=== PATIENT | male | born 1980 | race Caucasian/White ===

== ENCOUNTER 2018-05-31 06:45 | Emergency (ER) | payer OTHER ==
[~2018-05-31] VITALS: Ht 170.1 cm; Wt 129.3 kg
[~2018-05-31 06:45] MED LIST: ATARAX,VISTARIL50 MG PO; AUGMENTIN 875 M1 TAB PO; CITALOPRAM40 MG PO; FOSINOPRIL SODI40 MG PO; HYDR12.5C PO; LISINOPRIL20 MG PO; MEDROL DOSEPAK4 MG PO
[2018-05-31] MEDS ORDERED: FOSINOPRIL40 MG PO (06:48)
[2018-05-31] MEDS ORDERED: PREDNISONE50 MG PO (07:25)
[2018-05-31] MEDS ORDERED: CYCLOBENZAPRINE10 MG PO (07:25)
== END 2018-05-31 07:41 | disposition home or self-care (01) ==
LOC: ED 06:45
DX: M54.41 Lumbago with sciatica, right side (principal); M25.551 Pain in right hip; Z91.030 Bee allergy status; Z79.899 Other long term (current) drug therapy

== ENCOUNTER → 2018-06-20 | Outpatient (CLI) | payer OTHER ==
[~2018-06-20] MED LIST changes: +CYCLOBENZAPRINE10 MG PO; +FOSINOPRIL40 MG PO; +PREDNISONE50 MG PO
== END | disposition home or self-care (01) ==
LOC: RAD 10:46
DX: M47.817 Spondylosis without myelopathy or radiculopathy, lumbosacral region (principal)

== ENCOUNTER → 2018-11-25 | Outpatient (CLI) | payer OTHER | END | disposition home or self-care (01) | LOC: RAD 12:48 | DX: R50.9 Fever, unspecified (principal); R05 Cough ==

== ENCOUNTER 2020-03-06 13:34 | Emergency (ER) | payer OTHER ==
[~2020-03-06] VITALS: Ht 172.7 cm; Wt 129.3 kg
[2020-03-06 14:26] LABS: BASO % 0.4 % (0.0-1.0); EOS # 0.1 10*3/uL (0.0-0.4); EOS % 0.6 % (1.0-4.0); HEMATOCRIT 41.4 % (42.0-52.0); LYMPH # 1.4 10*3/uL (1.3-4.4); LYMPH % 12.4 % (27.0-41.0); MEAN CELL VOLUME 95.4 fl (80.0-94.0); MEAN CORPUSCULAR HGB 31.8 pg (27.0-31.0); MEAN CORPUSCULAR HGB CONC 33.3 g/dl (33.0-37.0); MEAN PLATELET VOLUME 8.8 fl (9.6-12.3); MONO # 0.8 10*3/uL (0.1-1.0); MONO % 7.3 % (3.0-9.0); NEUT # 8.8 10*3/uL (2.3-7.9); NEUT % 78.9 % (47.0-73.0); PLATELET COUNT AUTOMATED 249 10*3/uL (130-400); RED BLOOD COUNT 4.34 10*6/uL (4.50-5.90); RED CELL DISTRI WIDTH 11.9 % (0-14.5); WHITE BLOOD COUNT 11.2 10*3/uL (4.8-10.8)
[2020-03-06 14:27] LABS: BILIRUBIN Negative (Negative); BLOOD Negative (Negative); CLARITY Clear (Clear); COLOR Yellow (Yellow); GLUCOSE Negative (Negative); KETONE Negative (Negative); LEUKO ESTERASE Negative (Negative); NITRITE Negative (Negative); SPECIFIC GRAVITY <= 1.005 (1.001-1.030); UROBILINOGEN 0.2 E.U./dl (0.0-1.0)
[2020-03-06 14:38] LABS: RBC 0-2 rbc/hpf (0-2)
[2020-03-06 14:42] LABS: ALBUMIN 3.5 gm/dl (3.1-4.5); ALKALINE PHOSPHATASE 86 U/L (45-117); BUN 6 mg/dl (7-24); CHLORIDE 103 mmol/L (98-107); CREATININE 0.63 mg/dL (0.70-1.30); LIPASE 121 U/L (73-393); POTASSIUM 3.7 mmol/L (3.5-5.1); SGOT/AST 60 IU/L (3-35); SGPT/ALT 75 U/L (12-78); SODIUM 139 mmol/L (136-145); TOTAL PROTEIN 7.5 gm/dL (6.4-8.2)
[2020-03-06] MEDS ORDERED: CIPRO500 MG PO ×2 (17:13→17:20)
[2020-03-06] MEDS ORDERED: FLAGYL500 MG PO ×2 (17:13→17:20)
[2020-03-06] MEDS ORDERED: NORCO 5-325 TA1 EACH PO (17:20)
== END 2020-03-06 17:23 | disposition home or self-care (01) ==
LOC: ED 13:34
PROVIDERS: Nurse Practitioner Family
DX: K57.32 Diverticulitis of large intestine without perforation or abscess without bleeding (principal); Z91.030 Bee allergy status; Z79.899 Other long term (current) drug therapy

== ENCOUNTER 2021-06-01 23:37 | Emergency (ER) | payer OTHER ==
[~2021-06-01 23:37] MED LIST changes: +CIPRO500 MG PO; +FLAGYL500 MG PO; +NORCO 5-325 TA1 EACH PO
[2021-06-02 00:25] LABS: BASO % 0.3 % (0.0-1.0); EOS # 0.1 10*3/uL (0.0-0.4); EOS % 0.5 % (1.0-4.0); HEMATOCRIT 50.1 % (42.0-52.0); LYMPH % 30.3 % (27.0-41.0); MEAN CELL VOLUME 93.8 fl (80.0-94.0); MEAN CORPUSCULAR HGB 31.3 pg (27.0-31.0); MEAN CORPUSCULAR HGB CONC 33.3 g/dl (33.0-37.0); MEAN PLATELET VOLUME 8.8 fl (9.6-12.3); MONO # 0.7 10*3/uL (0.1-1.0); MONO % 6.8 % (3.0-9.0); NEUT # 6.2 10*3/uL (2.3-7.9); NEUT % 61.4 % (47.0-73.0); PLATELET COUNT AUTOMATED 288 10*3/uL (130-400); RED BLOOD COUNT 5.34 10*6/uL (4.50-5.90); RED CELL DISTRI WIDTH 12.7 % (0-14.5)
[2021-06-02 00:48] LABS: ALBUMIN 3.1 gm/dl (3.1-4.5); ALKALINE PHOSPHATASE 73 U/L (45-117); BUN 12 mg/dl (7-24); CHLORIDE 97 mmol/L (98-107); CREATININE 0.96 mg/dL (0.70-1.30); POTASSIUM 3.3 mmol/L (3.5-5.1); SGOT/AST 31 IU/L (3-35); SGPT/ALT 51 U/L (12-78); SODIUM 134 mmol/L (136-145); TOTAL PROTEIN 6.3 gm/dL (6.4-8.2)
[2021-06-02] MEDS ORDERED: PREDNISONE50 MG PO (09:59)
== END 2021-06-02 10:12 | disposition home or self-care (01) ==
LOC: ED 23:37
PROVIDERS: Emergency Medicine
DX: L50.9 Urticaria, unspecified (principal); T39.395A Adverse effect of other nonsteroidal anti-inflammatory drugs [NSAID], initial encounter; Z91.030 Bee allergy status; Z79.899 Other long term (current) drug therapy; Y92.89 Other specified places as the place of occurrence of the external cause

== ENCOUNTER → 2021-09-23 | Outpatient (CLI) | payer OTHER ==
[2021-09-23 12:12] LABS: BASO % 0.3 % (0.0-1.0); EOS # 0.1 10*3/uL (0.0-0.4); EOS % 0.7 % (1.0-4.0); HEMATOCRIT 45.5 % (42.0-52.0); LYMPH # 1.2 10*3/uL (1.3-4.4); LYMPH % 14.1 % (27.0-41.0); MEAN CORPUSCULAR HGB 31.9 pg (27.0-31.0); MEAN CORPUSCULAR HGB CONC 34.3 g/dl (33.0-37.0); MEAN PLATELET VOLUME 8.5 fl (9.6-12.3); MONO # 0.8 10*3/uL (0.1-1.0); MONO % 9.1 % (3.0-9.0); NEUT # 6.6 10*3/uL (2.3-7.9); NEUT % 75.3 % (47.0-73.0); PLATELET COUNT AUTOMATED 259 10*3/uL (130-400); RED BLOOD COUNT 4.89 10*6/uL (4.50-5.90); RED CELL DISTRI WIDTH 11.9 % (0-14.5); WHITE BLOOD COUNT 8.8 10*3/uL (4.8-10.8)
[2021-09-23 12:30] LABS: ALKALINE PHOSPHATASE 97 U/L (45-117); BUN 10 mg/dl (7-24); CHLORIDE 105 mmol/L (98-107); CREATININE 0.75 mg/dL (0.70-1.30); POTASSIUM 4.4 mmol/L (3.5-5.1); SGOT/AST 34 IU/L (3-35); SGPT/ALT 58 U/L (12-78); SODIUM 139 mmol/L (136-145); TOTAL PROTEIN 7.9 gm/dL (6.4-8.2)
[2021-09-24 02:06] LABS: TOTAL PROTEIN, SERUM 7.3 g/dL (6.0-8.5)
[2021-09-24 05:06] LABS: IMMUNOGLOBULIN G, QNT 774 mg/dL (603-1613); IMMUNOGLOBULIN M, QNT 100 mg/dL (20-172)
[2021-09-26 14:08] LABS: A/G RATIO 1.1 (0.7-1.7); ALBUMIN 3.9 g/dL (2.9-4.4); ALPHA-1-GLOBULIN 0.3 g/dL (0.0-0.4); ALPHA-2-GLOBULIN 0.9 g/dL (0.4-1.0); BETA GLOBULIN 1.3 g/dL (0.7-1.3); GAMMA GLOBULIN 0.8 g/dL (0.4-1.8); GLOBULIN, TOTAL 3.4 g/dL (2.2-3.9); M-SPIKE Not Observed g/dL (Not Observed)
== END | disposition home or self-care (01) ==
LOC: LAB 11:47
PROVIDERS: ATTEND Chiropractor Orthopedic
DX: M54.6 Pain in thoracic spine (principal)

== ENCOUNTER 2021-10-13 04:28 | Emergency (ER) | payer OTHER ==
[~2021-10-13] VITALS: Ht 170.1 cm; Wt 132.0 kg
== END 2021-10-13 05:47 | disposition home or self-care (01) ==
LOC: ED 04:28
DX: H57.12 Ocular pain, left eye (principal); Z79.899 Other long term (current) drug therapy; Z91.030 Bee allergy status; Z88.1 Allergy status to other antibiotic agents

== ENCOUNTER 2021-12-12 10:36 | Emergency (ER) | payer OTHER ==
[~2021-12-12] VITALS: Ht 172.7 cm; Wt 136.1 kg
[2021-12-12 11:30] LABS: BASO # 0.1 10*3/uL (0.0-0.1); BASO % 0.5 % (0.0-1.0); EOS # 0.1 10*3/uL (0.0-0.4); EOS % 0.7 % (1.0-4.0); HEMATOCRIT 42.8 % (42.0-52.0); LYMPH # 1.5 10*3/uL (1.3-4.4); LYMPH % 13.6 % (27.0-41.0); MEAN CELL VOLUME 95.5 fl (80.0-94.0); MEAN CORPUSCULAR HGB 32.1 pg (27.0-31.0); MEAN CORPUSCULAR HGB CONC 33.6 g/dl (33.0-37.0); MEAN PLATELET VOLUME 9.2 fl (9.6-12.3); MONO # 0.8 10*3/uL (0.1-1.0); MONO % 7.5 % (3.0-9.0); NEUT # 8.3 10*3/uL (2.3-7.9); NEUT % 77.2 % (47.0-73.0); PLATELET COUNT AUTOMATED 231 10*3/uL (130-400); RED BLOOD COUNT 4.48 10*6/uL (4.50-5.90); RED CELL DISTRI WIDTH 13.2 % (0-14.5); WHITE BLOOD COUNT 10.7 10*3/uL (4.8-10.8)
[2021-12-12 11:49] LABS: ALKALINE PHOSPHATASE 83 U/L (45-117); BUN 11 mg/dl (7-24); CHLORIDE 105 mmol/L (98-107); CREATININE 0.61 mg/dL (0.70-1.30); SGOT/AST 40 IU/L (3-35); SGPT/ALT 54 U/L (12-78); SODIUM 141 mmol/L (136-145); TOTAL PROTEIN 7.2 gm/dL (6.4-8.2)
== END 2021-12-12 14:19 | disposition home or self-care (01) ==
LOC: ED 10:36
PROVIDERS: Physician Assistant
DX: R60.0 Localized edema (principal); Z79.899 Other long term (current) drug therapy; Z91.030 Bee allergy status; Z88.1 Allergy status to other antibiotic agents

== ENCOUNTER 2021-12-20 11:20 | Observation (INO) | payer OTHER ==
[~2021-12-20] VITALS: Ht 172.7 cm; Wt 139.8 kg
[2021-12-20 11:33] VITALS: BP 103/59
[2021-12-20 12:13] LABS: BASO % 0.4 % (0.0-1.0); EOS # 0.1 10*3/uL (0.0-0.4); EOS % 1.5 % (1.0-4.0); HEMATOCRIT 41.6 % (42.0-52.0); LYMPH # 1.1 10*3/uL (1.3-4.4); LYMPH % 13.4 % (27.0-41.0); MEAN CELL VOLUME 93.9 fl (80.0-94.0); MEAN CORPUSCULAR HGB 31.4 pg (27.0-31.0); MEAN CORPUSCULAR HGB CONC 33.4 g/dl (33.0-37.0); MEAN PLATELET VOLUME 8.6 fl (9.6-12.3); MONO # 0.7 10*3/uL (0.1-1.0); MONO % 8.7 % (3.0-9.0); NEUT # 6.4 10*3/uL (2.3-7.9); NEUT % 75.6 % (47.0-73.0); PLATELET COUNT AUTOMATED 254 10*3/uL (130-400); RED BLOOD COUNT 4.43 10*6/uL (4.50-5.90); RED CELL DISTRI WIDTH 12.7 % (0-14.5); WHITE BLOOD COUNT 8.5 10*3/uL (4.8-10.8)
[2021-12-20 12:23] LABS: ACT PARTIAL THROMBO TIME 27.1 SECONDS (20.0-32.1)
[2021-12-20 12:29] LABS: ALKALINE PHOSPHATASE 87 U/L (45-117); BUN 11 mg/dl (7-24); CHLORIDE 108 mmol/L (98-107); CREATININE 0.56 mg/dL (0.70-1.30); LIPASE 112 U/L (73-393); POTASSIUM 3.7 mmol/L (3.5-5.1); SGOT/AST 21 IU/L (3-35); SGPT/ALT 38 U/L (12-78); SODIUM 137 mmol/L (136-145); TOTAL PROTEIN 6.9 gm/dL (6.4-8.2)
[2021-12-20 15:00] VITALS: BP 144/81
[2021-12-20 17:48] VITALS: BP 146/92
[2021-12-20] MEDS ORDERED: FOSINOPRIL40 MG PO (18:24)
[2021-12-20] MEDS ORDERED: LOPRESSOR25 MG PO (18:24)
[2021-12-20] MEDS ORDERED: LASIX20 MG PO (18:25)
[2021-12-20] MEDS ORDERED: NORVASC10 MG PO (18:25)
[2021-12-20 20:00] VITALS: BP 141/79
[2021-12-21] VITALS: BP 116/80
[2021-12-21 06:04] LABS: BUN 14 mg/dl (7-24); CHLORIDE 104 mmol/L (98-107); CREATININE 0.65 mg/dL (0.70-1.30); POTASSIUM 3.4 mmol/L (3.5-5.1); SGOT/AST 19 IU/L (3-35); SGPT/ALT 35 U/L (12-78); SODIUM 138 mmol/L (136-145); TOTAL PROTEIN 6.6 gm/dL (6.4-8.2)
[2021-12-21 06:07] LABS: ALKALINE PHOSPHATASE 82 U/L (45-117); CHOLESTEROL 149 mg/dL (<200); LDL CHOLESTEROL 83 mg/dL (9-159); TRIGLYCERIDES 98 mg/dl (<150)
[2021-12-21 06:19] LABS: BASO % 0.5 % (0.0-1.0); EOS # 0.2 10*3/uL (0.0-0.4); EOS % 2.1 % (1.0-4.0); HEMATOCRIT 40.3 % (42.0-52.0); LYMPH # 1.4 10*3/uL (1.3-4.4); LYMPH % 16.7 % (27.0-41.0); MEAN CELL VOLUME 96.6 fl (80.0-94.0); MEAN CORPUSCULAR HGB 31.9 pg (27.0-31.0); MEAN PLATELET VOLUME 9.3 fl (9.6-12.3); MONO # 0.9 10*3/uL (0.1-1.0); MONO % 10.7 % (3.0-9.0); NEUT # 5.9 10*3/uL (2.3-7.9); NEUT % 69.5 % (47.0-73.0); PLATELET COUNT AUTOMATED 265 10*3/uL (130-400); RED BLOOD COUNT 4.17 10*6/uL (4.50-5.90); RED CELL DISTRI WIDTH 13.2 % (0-14.5); WHITE BLOOD COUNT 8.5 10*3/uL (4.8-10.8)
[2021-12-21 08:00] VITALS: BP 120/61
[2021-12-21 12:00] VITALS: BP 130/69
[2021-12-21 16:00] VITALS: BP 138/86
== END 2021-12-21 17:22 | disposition home or self-care (01) ==
LOC: ED 11:20 → EDHOLD 14:58 → 4E 14:58
PROVIDERS: Emergency Medicine; Student in an Organized Health Care Education/Training Program; ADMIT Internal Medicine; ATTEND Internal Medicine
DX: R07.89 Other chest pain (principal); I11.0 Hypertensive heart disease with heart failure; I50.9 Heart failure, unspecified; D64.9 Anemia, unspecified; R00.0 Tachycardia, unspecified; R73.9 Hyperglycemia, unspecified; R79.82 Elevated C-reactive protein (CRP); I51.7 Cardiomegaly; E83.51 Hypocalcemia; E87.8 Other disorders of electrolyte and fluid balance, not elsewhere classified; R42 Dizziness and giddiness; Z79.899 Other long term (current) drug therapy

== ENCOUNTER 2022-04-26 18:21 | Emergency (ER) | payer OTHER ==
[~2022-04-26] VITALS: Ht 172.7 cm; Wt 136.1 kg
[~2022-04-26 18:21] MED LIST changes: +LASIX20 MG PO; +LOPRESSOR25 MG PO; +NORVASC10 MG PO
[2022-04-26 19:22] LABS: BASO % 0.3 % (0.0-1.0); EOS # 0.1 10*3/uL (0.0-0.4); EOS % 0.9 % (1.0-4.0); HEMATOCRIT 44.4 % (42.0-52.0); LYMPH # 1.7 10*3/uL (1.3-4.4); LYMPH % 16.7 % (27.0-41.0); MEAN CELL VOLUME 93.7 fl (80.0-94.0); MEAN CORPUSCULAR HGB 31.4 pg (27.0-31.0); MEAN CORPUSCULAR HGB CONC 33.6 g/dl (33.0-37.0); MEAN PLATELET VOLUME 8.8 fl (9.6-12.3); MONO # 0.9 10*3/uL (0.1-1.0); MONO % 8.9 % (3.0-9.0); NEUT # 7.4 10*3/uL (2.3-7.9); NEUT % 72.9 % (47.0-73.0); PLATELET COUNT AUTOMATED 219 10*3/uL (130-400); RED BLOOD COUNT 4.74 10*6/uL (4.50-5.90); RED CELL DISTRI WIDTH 12.6 % (0-14.5); WHITE BLOOD COUNT 10.2 10*3/uL (4.8-10.8)
[2022-04-26 19:33] LABS: ACT PARTIAL THROMBO TIME 26.6 SECONDS (20.0-32.1)
[2022-04-26 19:40] LABS: ALKALINE PHOSPHATASE 87 U/L (46-116); BUN 11 mg/dl (9-23); CHLORIDE 102 mmol/L (98-107); POTASSIUM 3.8 mmol/L (3.4-5.1); SGPT/ALT 28 U/L (10-49); SODIUM 139 mmol/L (136-145); TOTAL PROTEIN 7.1 gm/dL (6.0-8.0)
== END 2022-04-26 22:39 | disposition home or self-care (01) ==
LOC: ED 18:21
PROVIDERS: Family Medicine
DX: R07.89 Other chest pain (principal); R00.2 Palpitations; Z79.899 Other long term (current) drug therapy; Z91.030 Bee allergy status; Z88.8 Allergy status to other drugs, medicaments and biological substances

== ENCOUNTER → 2022-10-24 | Outpatient (CLI) | payer OTHER | END | disposition home or self-care (01) | LOC: RAD 12:18 | PROVIDERS: ATTEND Internal Medicine | DX: M25.551 Pain in right hip (principal) ==

== ENCOUNTER → 2023-07-03 | Outpatient (CLI) | payer OTHER | END | disposition home or self-care (01) | LOC: RAD 11:21 | PROVIDERS: ATTEND Internal Medicine | DX: M54.6 Pain in thoracic spine (principal) ==

== ENCOUNTER 2023-09-02 01:09 | Inpatient (IN) | payer OTHER ==
[~2023-09-02] VITALS: Ht 172.7 cm; Wt 150.4 kg
[2023-09-02 01:15] VITALS: BP 143/86
[2023-09-02 01:34] LABS: BASO # 0.1 10*3/uL (0.0-0.1); BASO % 0.5 % (0.0-1.0); EOS # 0.2 10*3/uL (0.0-0.4); EOS % 1.9 % (1.0-4.0); HEMATOCRIT 41.3 % (42.0-52.0); LYMPH # 2.1 10*3/uL (1.3-4.4); LYMPH % 20.5 % (27.0-41.0); MEAN CELL VOLUME 97.9 fl (80.0-94.0); MEAN CORPUSCULAR HGB 31.8 pg (27.0-31.0); MEAN CORPUSCULAR HGB CONC 32.4 g/dl (33.0-37.0); MEAN PLATELET VOLUME 8.8 fl (9.6-12.3); MONO # 0.9 10*3/uL (0.1-1.0); MONO % 8.9 % (3.0-9.0); NEUT % 67.7 % (47.0-73.0); PLATELET COUNT AUTOMATED 205 10*3/uL (130-400); RED BLOOD COUNT 4.22 10*6/uL (4.50-5.90); RED CELL DISTRI WIDTH 13.2 % (0-14.5); WHITE BLOOD COUNT 10.3 10*3/uL (4.8-10.8)
[2023-09-02] MEDS ORDERED: Lopressor25 MG PO (01:44)
[2023-09-02] MEDS ORDERED: FUROSEMIDE40 MG PO (01:44)
[2023-09-02] MEDS ORDERED: POTASSIUM CHLO20 ME4 PO (01:44)
[2023-09-02 01:46] LABS: ACT PARTIAL THROMBO TIME 28.1 SECONDS (20.0-32.1)
[2023-09-02 01:47] LABS: BILIRUBIN Negative (Negative); BLOOD Negative (Negative); CLARITY Clear (Clear); COLOR Yellow (Yellow); GLUCOSE Negative (Negative); KETONE Negative (Negative); LEUKO ESTERASE Negative (Negative); NITRITE Negative (Negative); PH 5.5 (4.5-8.0); SPECIFIC GRAVITY <= 1.005 (1.001-1.030); UROBILINOGEN 0.2 E.U./dl (0.0-1.0)
[2023-09-02 01:55] LABS: RBC 0-2 rbc/hpf (0-2); URINE AMPHETAMINES Negative (1000ng/ml); URINE BARBITURATES Negative (200ng/ml); URINE BENZODIAZEPINES Negative (200ng/ml); URINE CANNABINOIDS (THC) Negative (50ng/ml); URINE COCAINE Negative (300ng/ml); URINE METHADONE Negative (300ng/ml); URINE OPIATES Negative (300ng/ml); URINE PHENCYCLIDINE Negative (25ng/ml)
[2023-09-02 01:57] LABS: ALKALINE PHOSPHATASE 84 U/L (46-116); BUN 9 mg/dl (9-23); CHLORIDE 100 mmol/L (98-107); ETHYL ALCOHOL 192.8 mg/dl (<3); LIPASE 45 U/L (12-53); POTASSIUM 3.5 mmol/L (3.4-5.1); SGPT/ALT 54 U/L (5-49); TOTAL PROTEIN 6.9 gm/dL (6.0-8.0)
[2023-09-02] MEDS ORDERED: Dexamethasone Sodium Phospha 20 MG/5 ML VIAL IV ONE (02:05)
[2023-09-02] MEDS ORDERED: FAMOTIDINE 50 ML IV ONE (02:05)
[2023-09-02] MEDS ORDERED: diphenhydrAMINE hydrochloride 50 MG/ML VIAL IV ONE (02:05)
[2023-09-02] MEDS ORDERED: FUROSEMIDE 40 MG/4 ML VIAL IV ONE (04:15)
[2023-09-02] MEDS ORDERED: BISACODYL 5 MG TAB PO PRN (04:25)
[2023-09-02] MEDS ORDERED: TEMAZEPAM 15 MG CAP PO PRN (04:25)
[2023-09-02] MEDS ORDERED: Ondansetron Hydrochloride 4 MG/2 ML VIAL IV PRN (04:25)
[2023-09-02] MEDS ORDERED: BISACODYL 10 MG SUPP R PRN (04:25)
[2023-09-02] MEDS ORDERED: ACETAMINOPHEN 325 MG TAB PO PRN (04:25)
[2023-09-02] MEDS ORDERED: Magnesium Hydroxide 30 ML UDC PO PRN (04:25)
[2023-09-02] MEDS ORDERED: Acetaminophen/Hydrocodone 5 MG/325 MG TABLET PO PRN (04:25)
[2023-09-02] MEDS ORDERED: MORPHINE Sulfate 2 MG/ML SYR IV PRN (04:25)
[2023-09-02] MEDS ORDERED: ACETAMINOPHEN 650 MG SUPP R PRN (04:25)
[2023-09-02 05:58] VITALS: BP 119/70
[2023-09-02] MEDS ORDERED: DEXTROSE 10 % IN WATER 250 ML IV PRN (06:50)
[2023-09-02 07:23] LABS: BASO % 0.3 % (0.0-1.0); EOS % 0.2 % (1.0-4.0); HEMATOCRIT 42.8 % (42.0-52.0); LYMPH # 0.4 10*3/uL (1.3-4.4); LYMPH % 6.6 % (27.0-41.0); MEAN CELL VOLUME 97.7 fl (80.0-94.0); MEAN CORPUSCULAR HGB 31.7 pg (27.0-31.0); MEAN CORPUSCULAR HGB CONC 32.5 g/dl (33.0-37.0); MEAN PLATELET VOLUME 8.9 fl (9.6-12.3); MONO # 0.1 10*3/uL (0.1-1.0); MONO % 1.2 % (3.0-9.0); NEUT # 6.1 10*3/uL (2.3-7.9); NEUT % 90.8 % (47.0-73.0); PLATELET COUNT AUTOMATED 218 10*3/uL (130-400); RED BLOOD COUNT 4.38 10*6/uL (4.50-5.90); WHITE BLOOD COUNT 6.7 10*3/uL (4.8-10.8)
[2023-09-02] MEDS ORDERED: INSULIN LISPRO 1 UNIT/0.01 ML SQ SCH (07:30)
[2023-09-02 07:33] LABS: ACT PARTIAL THROMBO TIME 28.4 SECONDS (20.0-32.1)
[2023-09-02 07:56] LABS: PLATELET SUFFICIENCY NORMAL (NORMAL); POLYCHROMASIA SLIGHT; TOTAL CELLS COUNTED 100 #CELLS
[2023-09-02 07:58] LABS: ALKALINE PHOSPHATASE 89 U/L (46-116); BUN 9 mg/dl (9-23); CHLORIDE 102 mmol/L (98-107); CHOLESTEROL 143 mg/dL (<200); FREE T4 1.17 ng/dl (0.89-1.76); LDL CHOLESTEROL 71 mg/dL (9-159); POTASSIUM 4.1 mmol/L (3.4-5.1); SGPT/ALT 55 U/L (5-49); TOTAL PROTEIN 7.2 gm/dL (6.0-8.0); TRIGLYCERIDES 144 mg/dl (<150)
[2023-09-02] MEDS ORDERED: LORazepam 1 MG TAB PO SCH (08:00)
[2023-09-02 08:20] VITALS: BP 119/70
[2023-09-02 08:20] LABS: VITAMIN D, 25-HYDROXY 41.3 ng/mL (30-100)
[2023-09-02] MEDS ORDERED: FUROSEMIDE 40 MG TAB PO SCH (10:00)
[2023-09-02] MEDS ORDERED: FOLIC ACID 1 MG TAB PO SCH (10:00)
[2023-09-02] MEDS ORDERED: Enoxaparin Sodium 40 MG/0.4 ML SYR SC SCH (10:00)
[2023-09-02] MEDS ORDERED: Metoprolol Tartrate 25 MG TAB PO SCH (10:00)
[2023-09-02] MEDS ORDERED: Thiamine 100 MG TAB PO SCH (10:00)
[2023-09-02] MEDS ORDERED: LISINOPRIL 40 MG TAB PO SCH (10:00)
[2023-09-02] MEDS ORDERED: MULTIVITAMIN 1 TAB TAB PO SCH (10:00)
[2023-09-02 12:00] VITALS: BP 141/80
[2023-09-02] MEDS ORDERED: IOHEXOL 350 MG/ML 100 ML VIAL IV ONE (12:20)
[2023-09-02] MEDS ORDERED: SODIUM CHLORIDE 0.9% 100 ML BAG IV ONE (12:20)
[2023-09-02 15:52] VITALS: BP 129/82
[2023-09-02] MEDS ORDERED: FUROSEMIDE 40 MG/4 ML VIAL IV SCH (18:00)
[2023-09-02 20:00] VITALS: BP 140/76
[2023-09-03] VITALS: BP 136/72
[2023-09-03 06:14] LABS: BASO % 0.2 % (0.0-1.0); EOS % 0.1 % (1.0-4.0); HEMATOCRIT 41.2 % (42.0-52.0); LYMPH # 1.3 10*3/uL (1.3-4.4); LYMPH % 11.3 % (27.0-41.0); MEAN CELL VOLUME 99.3 fl (80.0-94.0); MEAN CORPUSCULAR HGB 31.8 pg (27.0-31.0); MEAN PLATELET VOLUME 9.6 fl (9.6-12.3); MONO # 1.2 10*3/uL (0.1-1.0); MONO % 10.2 % (3.0-9.0); NEUT % 77.8 % (47.0-73.0); PLATELET COUNT AUTOMATED 259 10*3/uL (130-400); RED BLOOD COUNT 4.15 10*6/uL (4.50-5.90); RED CELL DISTRI WIDTH 13.2 % (0-14.5); WHITE BLOOD COUNT 11.6 10*3/uL (4.8-10.8)
[2023-09-03 06:46] LABS: ALKALINE PHOSPHATASE 80 U/L (46-116); BUN 14 mg/dl (9-23); CHLORIDE 104 mmol/L (98-107); POTASSIUM 3.5 mmol/L (3.4-5.1); SGPT/ALT 41 U/L (5-49); TOTAL PROTEIN 6.8 gm/dL (6.0-8.0)
[2023-09-03 08:00] VITALS: BP 150/88
[2023-09-03] MEDS ORDERED: SODIUM CHLORIDE 0.9% 100 ML BAG IV ONE (08:20)
[2023-09-03] MEDS ORDERED: IOHEXOL 350 MG/ML 100 ML VIAL IV ONE (08:20)
[2023-09-03 12:00] VITALS: BP 136/74
[2023-09-03] MEDS ORDERED: LORazepam 1 MG TAB PO SCH (12:00)
[2023-09-03] MEDS ORDERED: PERFLUTREN PROTEIN-A MICROSPHR 3 ML VIAL IV ONE (14:55)
[2023-09-03] MEDS ORDERED: TORSEMIDE20 MG PO (15:43)
[2023-09-03 16:00] VITALS: BP 131/63
[2023-09-03] MEDS ORDERED: TORSEMIDE 20 MG TAB PO SCH (18:00)
[2023-09-04] MEDS ORDERED: LORazepam 1 MG TAB PO PRN
== END 2023-09-03 17:30 | disposition home or self-care (01) | DRG 292 ==
LOC: ED 01:09 → EDHOLD 04:17 → 4E 04:41
PROVIDERS: Internal Medicine; Student in an Organized Health Care Education/Training Program; ADMIT Internal Medicine; ATTEND Internal Medicine
DX: I11.0 Hypertensive heart disease with heart failure (principal); Z68.42 Body mass index [BMI] 45.0-49.9, adult; I50.9 Heart failure, unspecified; D64.9 Anemia, unspecified; E83.51 Hypocalcemia; G47.30 Sleep apnea, unspecified; K76.0 Fatty (change of) liver, not elsewhere classified; R73.9 Hyperglycemia, unspecified; R74.01 Elevation of levels of liver transaminase levels; F10.10 Alcohol abuse, uncomplicated; E66.01 Morbid (severe) obesity due to excess calories; Z88.8 Allergy status to other drugs, medicaments and biological substances